=== PATIENT | female | born 1970 | race Caucasian/White ===

== ENCOUNTER 2017-02-01 21:12 | Observation (INO) | payer OTHER ==
[~2017-02-01] VITALS: Ht 149.9 cm; Wt 100.8 kg
[~2017-02-01 21:12] MED LIST: ADVIL,NUPRIN,M200 MG PO; ASPIR 8181 M1 PO; ASPIRIN81 M2 PO; ATARAX10 MG PO; BUDEPRION SR150 MG PO; CALTRATE 600 +1 EAC1 PO; CENTRUM ULTRA1 EAC1 PO; EFFEXOR XR150 MG PO; EFFEXOR XR75 MG PO; FLEXERIL10 MG PO; LASIX20 MG PO; MOTRIN600 MG PO; NAPROSYN500 MG PO; OMEPRAZOLE20 MG PO; TRAMADOL HCL50 MG PO; WELLBUTRIN75 MG PO; YAZ 28 TABLET1 EACH PO; [UNRECOGNIZED DRUG - OTHER] PO
[2017-02-01 22:53] LABS: BASOPHIL COUNT 0.1 K/uL (0-0.1); CHLORIDE 108 mEq/L (99-109); EOSINOPHIL COUNT 0.1 K/uL (0-0.3); HEMATOCRIT 33.9 % (36.0-46.0); IMMATURE GRANULOCYTE (%) 0.4 % (0.0-0.7); IMMATURE GRANULOCYTE COUNT 0.1 K/uL; INSTRUMENT ABS NEUTROPHIL CT 7.2 K/uL; LYMPHOCYTE COUNT 3.1 K/uL (1.0-2.8); MCH 20.6 PG (29.0-34.0); MCHC 28.6 G/DL (30.0-36.0); MCV 72.1 FL (83-99); MEAN PLAT.VOLUME 8.3 uM^3 (9.5-12.4); MONOCYTE (%) 5.9 % (3-12); MONOCYTE COUNT 0.7 K/uL (0-0.8); NEUTROPHIL (%) 64.4 % (45-76); NEUTROPHIL COUNT 7.2 K/uL (1.8-6.4); PLATELET COUNT 537 K/uL (156-360); POTASSIUM 3.6 mEq/L (3.7-5.4); RBC DIS.WIDTH-CV 16.3 % (11.8-14.6); RBC DIS.WIDTH-SD 42.3 % (39-53); SODIUM 141 mEq/L (136-147); WHITE BLOOD COUNT 11.2 K/uL (4.1-10.2)
[2017-02-01 22:55] LABS: GLUCOSE 82 mg/dL (70-99)
[2017-02-01 22:56] LABS: ANION GAP 10 MEQ/L (2-14)
[2017-02-01 22:58] LABS: GFR ESTIMATE (CALCULATED) > 59 mL/min/
[2017-02-01 22:59] LABS: UREA NITROGEN (BUN) 8 mg/dL (9-23)
[2017-02-01 23:00] LABS: TROP-I INTERPRETATION NEGATIVE; TROPONIN-I < 0.01 ng/mL (0.0-0.30)
[2017-02-01] MEDS ORDERED: BUSPAR10 MG PO (23:41)
[2017-02-01] MEDS ORDERED: HIBICLENS118 ML TP (23:41)
[2017-02-02] LABS: QUANTITATIVE HCG < 4.0 MIU/ML
[2017-02-02 00:43] VITALS: BP 139/107
[2017-02-02 00:49] LABS: HDL CHOLESTEROL 61 MG/DL (Desirable>=50); LDL CHOLESTEROL 78 mg/dL (Desirable<100); NON-HDL CHOLESTEROL 102 mg/dL (Desirable<160); TOTAL CHOLESTEROL 163 mg/dL (Desirable<200); TRIGLYCERIDES 121 MG/DL (Normal: <150)
[2017-02-02 04:20] VITALS: BP 175/72
[2017-02-02 06:12] LABS: ALKALINE PHOSPHATASE 110 IU/L (3-129); ANION GAP 7 MEQ/L (2-14); CHLORIDE 107 MEQ/L (99-109); GFR ESTIMATE (CALCULATED) > 59 mL/min/; GLUCOSE 73 mg/dL (70-99); POTASSIUM 4.1 MEQ/L (3.7-5.4); SAMPLE HEMOLYSIS CHECK 0; SAMPLE ICTERIC CHECK 0; SAMPLE LIPEMIA CHECK 0; SODIUM 138 MEQ/L (136-147); TOTAL BILIRUBIN 0.3 MG/DL (0.0-1.0); UREA NITROGEN (BUN) 7 mg/dL (9-23)
[2017-02-02 06:13] LABS: IRON 24 MCG/DL (35-150)
[2017-02-02 06:42] LABS: Estimated Average Glucose 117 mg/dL (70-123); HEMOGLOBIN A1c (GLYCOHEMOGLOB) 5.7 % HGB (Below 5.7)
[2017-02-02 06:43] LABS: MCH 20.7 PG (29.0-34.0); MCV 71.4 FL (83-99); MEAN PLAT.VOLUME 8.4 uM^3 (9.5-12.4); PLATELET COUNT 480 K/uL (156-360); RBC DIS.WIDTH-CV 16.3 % (11.8-14.6); RBC DIS.WIDTH-SD 41.7 % (39-53); RED BLOOD COUNT 4.34 M/uL (3.80-5.20); WHITE BLOOD COUNT 9.2 K/uL (4.1-10.2)
[2017-02-02 06:52] LABS: TROP-I INTERPRETATION NEGATIVE; TROPONIN-I < 0.01 ng/mL (0.0-0.30)
[2017-02-02 07:48] VITALS: BP 180/96
[2017-02-02 08:01] LABS: FERRITIN 3 NG/ML (10-291)
[2017-02-02 09:53] VITALS: BP 140/68
[2017-02-02 12:07] LABS: TROP-I INTERPRETATION NEGATIVE; TROPONIN-I < 0.01 ng/mL (0.0-0.30)
[2017-02-02] MEDS ORDERED: FERROUS SULFAT325 MG PO (13:18)
[2017-02-02] MEDS ORDERED: FAMOTIDINE20 MG PO (13:20)
[2017-02-02] MEDS ORDERED: VENTOLIN HFA18 GM IH (13:21)
== END 2017-02-02 14:02 | disposition home or self-care (01) ==
LOC: EME 21:12 → EDOF 23:28 → ENRESERV 23:42 → 5WEST 02-02 00:31
PROVIDERS: Emergency Medicine; Internal Medicine
DX: R07.9 Chest pain, unspecified (principal); E78.5 Hyperlipidemia, unspecified; G47.33 Obstructive sleep apnea (adult) (pediatric); D50.9 Iron deficiency anemia, unspecified; F32.9 Major depressive disorder, single episode, unspecified; I10 Essential (primary) hypertension; D72.829 Elevated white blood cell count, unspecified; J45.909 Unspecified asthma, uncomplicated; F41.9 Anxiety disorder, unspecified; E66.9 Obesity, unspecified; Z68.41 Body mass index [BMI] 40.0-44.9, adult; R73.03 Prediabetes; Z98.84 Bariatric surgery status; Z82.49 Family history of ischemic heart disease and other diseases of the circulatory system; Z83.3 Family history of diabetes mellitus; Z88.8 Allergy status to other drugs, medicaments and biological substances
CPT/HCPCS: 71020; 80048; 80053; 80061; 81003; 82728; 83036; 83540; 84466; 84484; 84702; 85025; 85027; 85379; 93005; 94660; 99281; 99285; G0378

== ENCOUNTER → 2017-02-21 | Outpatient (CLI) | payer OTHER ==
[~2017-02-21] VITALS: Ht 149.9 cm; Wt 100.7 kg
[~2017-02-21] MED LIST changes: +BUSPAR10 MG PO; +CLARITIN,ALAVAR10 MG PO; +FAMOTIDINE20 MG PO; +FERROUS SULFAT325 MG PO; +HIBICLENS118 ML TP; +VENTOLIN HFA18 GM IH
== END | disposition home or self-care (01) ==
LOC: AMB 10:52
DX: D50.9 Iron deficiency anemia, unspecified (principal); Z98.84 Bariatric surgery status; I10 Essential (primary) hypertension; E78.5 Hyperlipidemia, unspecified; J45.909 Unspecified asthma, uncomplicated; G47.30 Sleep apnea, unspecified; F41.9 Anxiety disorder, unspecified; F32.9 Major depressive disorder, single episode, unspecified
CPT/HCPCS: J2250